=== PATIENT | female | born 1985 | race African-American/Black ===

== ENCOUNTER 2020-01-01 19:42 | Emergency (ER) | payer MEDICARE ==
[~2020-01-01] VITALS: Ht 162.6 cm; Wt 56.8 kg
[2020-01-01 20:06] VITALS: Ht 162.6 cm; Wt 56.8 kg
[2020-01-01 20:19] LABS: BASOPHILS 0.4 % (0-2); EOSINOPHILS 1.2 % (0-7); HEMATOCRIT 38.1 % (36.0-48.0); IMMATURE GRANULOCYTES 0.2 % (0-5); LYMPHOCYTES 47.8 % (15-50); MCH 29.3 pg (26.0-34.0); MCHC 34.1 g/dL (31.0-37.0); MCV 85.8 fL (80.0-100.0); MEAN PLATELET VOLUME 9.4 fL (7.4-10.4); MONOCYTES 6.4 % (2-11); PLATELET COUNT 185 10x3/uL (130-400); RBC 4.44 10x6/uL (4.00-5.40); RDW 13.8 % (11.5-14.5); WBC 8.3 10x3/uL (4.8-10.8)
[2020-01-01 20:33] LABS: CALC OSMOLALITY 277 mosm/kg (275-300); CALCIUM 8.9 mg/dL (8.5-10.1); CARBON DIOXIDE 25.5 mmol/L (21.0-32.0); CHLORIDE - SERUM 106 mmol/L (98-107); CREATININE - SERUM 0.7 mg/dL (0.6-1.3); GLUCOSE 103 mg/dL (74-106); POTASSIUM - SERUM 3.7 mmol/L (3.5-5.1); SODIUM 140 mmol/L (136-145); UREA NITROGEN 10 mg/dL (7-18); eGFR NON AFRICAN AMERICAN > 90 mL/min (90-120)
[2020-01-01 20:38] LABS: HCG SERUM NEGATIVE (NEGATIVE)
[2020-01-01 20:39] LABS: ALBUMIN 3.6 g/dL (3.4-5.0); ALKALINE PHOSPHATASE 56 U/L (30-120); ALT (SGPT) 17 U/L (10-68); BILIRUBIN - TOTAL 0.15 mg/dL (0.2-1.3)
[2020-01-01 21:51] LABS: BILIRUBIN NEGATIVE (NEGATIVE); GLUCOSE NEGATIVE (NEGATIVE); KETONE NEGATIVE (NEGATIVE); NITRITE NEGATIVE (NEGATIVE); UROBILINOGEN NORMAL (NORMAL)
[2020-01-01 22:08] LABS: UDS - AMPHET NEGATIVE QUAL (NEGATIVE); UDS - BARB NEGATIVE QUAL (NEGATIVE); UDS - BENZO POSITIVE QUAL (NEGATIVE); UDS - COCAINE NEGATIVE QUAL (NEGATIVE); UDS - OPIATE NEGATIVE QUAL (NEGATIVE); UDS - PCP NEGATIVE QUAL (NEGATIVE); UDS - THC NEGATIVE QUAL (NEGATIVE)
[2020-01-02 05:11] VITALS: BP 132/89
== END 2020-01-02 06:53 ==
LOC: D.ER 19:42
PROVIDERS: Family Medicine
DX: R44.0 Auditory hallucinations (principal); R44.1 Visual hallucinations; R46.89 Other symptoms and signs involving appearance and behavior; Z91.14 Patient's other noncompliance with medication regimen; F20.9 Schizophrenia, unspecified